=== PATIENT | male | born 1965 | race Caucasian/White ===

== ENCOUNTER 2019-12-15 18:29 | Emergency (ER) | payer OTHER, SELFPAY ==
--- NOTE | ~2019-12-15 | CT_ITS ---
EXAMINATION: CT soft tissue neck w con DATE: 12/15/2019 20:43 INDICATION: Left facial pain and swelling TECHNIQUE: Computed tomography (CT) of the neck was performed with 75 cc of Omnipaque 350 intravenous contrast. The dose-length product (DLP) was 543.65 mGy-cm. Automated exposure control and iterative reconstruction technique were employed. COMPARISON: None FINDINGS: There is subtle left facial soft tissue swelling, predominantly of the mandible, compared t o the right. No phlegmon or fluid collection is identified. The thyroid gland is unremarkable. The clayton bmandibular and parotid glands are symmetric. There is no lymphadenopathy. There are no masses identi fied. The vasculature is patent. The airway is unremarkable. There are no osseous abnormalities. The orbits are unremarkable. The superior mediastinum is unremarkable. There is mucosal thickening of the right maxillary sinus. Moderate cervical spondylosis is noted. IMPRESSION: 1. Subtle left facial soft tissue swelling predominantly of the mandible without abscess or phlegmon. Reviewed, dictated and finalized at location A. IMPRESSION: 1. Subtle left facial soft tissue swelling predominantly of the mandible withou t abscess or phlegmon.
[2019-12-15 18:34] VITALS: BP 148/87; PULSE 103; RESP 18; TEMP 36.6; O2SAT 99
--- NOTE | 2019-12-15 19:05 | ED.GENADULT ---
HPI - General Adult General Chief complaint: Dental/Oral <Ludwig Pena PA-C - Last Filed: 12/15/19 21:20> Stated complaint: Jaw pain/sore throat <COBY Bhatt Last Filed: 12/15/19 21:20> Time Seen by Provider: 12/15/19 18:50 <COBY Bhatt Last Filed: 12/15/19 21:20> Source: patient <COBY Bhatt Last Filed: 12/15/19 21:20> Mode of arrival: ambulatory <COBY Bhatt Last Filed: 12/15/19 21:20> Limitations: no limitations <COBY Bhatt Last Filed: 12/15/19 21:20> History of Present Illness HPI narrative: Patient is a 54-year-old male who presents with 1 week duration of pain and swelling to the left parotid region. Patient also notes the pain is worse with swallowing. Patient denies injury trauma or similar occurrence in the past. Patient denies any pain in the oropharynx. Patient denies URI symptoms. Patient has been taking [id number] medications and azithromycin with minimal improvement. Azithromycin was prescribed 3 days ago by his primary care doctor. <COBY Bhatt Last Filed: 12/15/19 21:20> Related Data Home medications: Home Medications Medication Instructions Recorded Confirmed alprazolam 0.25 mg tablet 0.25 mg PO BID 07/14/19 aspirin 81 mg tablet,delayed 81 mg PO DAILY 07/14/19 release warfarin 6 mg tablet 6 mg PO DAILY 07/14/19 <COBY Bhatt Last Filed: 12/15/19 21:20> Allergies/adverse reactions: Allergies Allergy/AdvReac Type Severity Reaction Status Date / Time Penicillins Allergy Unknown Rash Verified 12/13/19 11:05 rosuvastatin Allergy Unknown Cramping Verified 12/13/19 11:05 of the Muscles <COBY Bhatt Last Filed: 12/15/19 21:20> Review of Systems Review of Systems: All systems reviewed & are unremarkable except as noted in HPI and below <COBY Bhatt Last Filed: 12/15/19 21:20> [facility] Past Medical History Medical History: Medical History History of CVA (cerebrovascular accident) <Ludwig Pena PA-C - Last Filed: 12/15/19 21:20> Social History Social History: Social History Smoking status: Current every day smoker Second hand tobacco smoke exposure: No Alcohol intake: current Gender identity (if verbalized by the patient): Male <Ludwig Pena PA-C - Last Filed: 12/15/19 21:20> Exam Narrative: Exam Narrative: GENERAL: Well-appearing, well-nourished, and in no acute distress. HEAD: Normocephalic, atraumatic. EYES: PERRLA and EOMI. ENT: Nares clear, no rhinorrhea or epistaxis. Mucous membranes moist. Oropharynx without tonsillar hypertrophy exudate or other lesions. Bilateral TMs pearly parham nonbulging. Floor of the mouth is soft. Uvula is midline. Tenderness and swelling to the left parotid region no erythema NECK: Supple. No adenopathy or masses. No stridor CHEST: Clear to auscultation. No respiratory distress. No wheezes rales or rhonchi HEART: Regular rate and rhythm. No murmur heard. EXTREMITIES: Normal range of motion. No edema. SKIN: Warm, dry, no rash. NEURO: No focal deficits. Alert and oriented x3. Cranial nerves II through XII grossly intact PSYCH: Normal mood and affect. <Ludwig Pena PA-C - Last Filed: 12/15/19 21:20> Course Vital Signs Vital signs: Vital Signs Temperature 36.6 C 12/15/19 18:34 Pulse Rate 103 H 12/15/19 18:34 Respiratory Rate 18 12/15/19 18:34 Blood Pressure 148/87 H 12/15/19 18:34 Pulse Oximetry 99 12/15/19 18:34 Temperature 36.6 C 12/15/19 18:34 Pulse Rate 103 H 12/15/19 18:34 Respiratory Rate 18 12/15/19 18:34 Blood Pressure 148/87 H 12/15/19 18:34 Pulse Oximetry 99 12/15/19 18:34 <Ludwig Pena PA-C - Last Filed: 12/15/19 21:20> Vital Signs Tempera
[2019-12-15 19:19] LABS: Basophils Absolute Auto 0.1 K/mm3 (0.0-0.1); Basophils Percent Auto 0.6 % (0.2-1.2); Eosinophils Absolute Auto 0.3 K/mm3 (0-0.3); Eosinophils Percent Auto 2.7 % (0-4.4); Hemoglobin 16.6 g/dL (14.0-18.0); Immature Granulocyte Absolute 0.07 K/mm3 (0.00-0.031); Immature Granulocyte Percent A 0.7 % (0-0.5); Lymphocytes Absolute Auto 3.14 K/mm3 (0.9-3.2); Lymphocytes Percent Auto 30.5 % (18.3-44.2); Mean Corpuscular HGB Conc 34.6 g/dl (32-36); Mean Corpuscular Hemoglobin 31.5 pg (26-34); Mean Corpuscular Volume 91.1 fl (80-100); Mean Platelet Volume 9.6 fl (7.4-10.4); Monocytes Absolute Auto 0.7 K/mm3 (0.1-0.6); Monocytes Percent Auto 7.1 % (2.6-8.5); Neutrophils Percent Auto 58.4 % (45.5-73.1); Platelet Count Result 354 k/mm3 (150-375); Red Blood Count 5.27 M/mm3 (4.6-6.20); Red Cell Distribution Width 14.4 % (11.5-14.5); White Blood Count 10.3 K/mm3 (4.5-10.0)
[2019-12-15 19:27] LABS: Alanine Aminotransferase 59 U/L (4-50); Albumin Level 4.6 g/dL (3.5-5.1); Alkaline Phosphatase 48 U/L (38-126); Aspartate Amino Transferase 53 U/L (17-59); Bilirubin,Total 0.4 mg/dL (0.2-1.3); Blood Urea Nitrogen 16 mg/dL (9-20); Calcium 9.5 mg/dL (8.4-10.2); Carbon Dioxide 25 mmol/L (22-30); Chloride 102 mmol/L (98-107); Estimated CRCL calculation 102 ml/min; Estimated Glomerular Filt Rate > 60; Glucose 100 mg/dL (75-110); Potassium 3.7 mmol/L (3.4-5.0); Sodium 135 mmol/L (137-145)
[2019-12-15 19:28] LABS: INR 1.7; Prothrombin Time 19.4 Seconds (11.1-14.7)
[2019-12-15] MEDS: CLINDAMYCIN 900 MG/NS 50 ML 900 MG/50 ML PIGGYBACK 50 MG IVPB (19:34)
[2019-12-15] MEDS: SODIUM CHLORIDE 0.9% IV 1,000 ML 999 ML IV CONT (19:34)
== END 2019-12-15 21:24 | disposition home or self-care (01) ==
PROVIDERS: Emergency Medicine Emergency Medical Services; Emergency Provider Emergency Medicine; PCP Family Medicine
DX: R68.84 Jaw pain (principal); Z86.73 Personal history of transient ischemic attack (TIA), and cerebral infarction without residual deficits; Z79.01 Long term (current) use of anticoagulants; F17.200 Nicotine dependence, unspecified, uncomplicated; Z79.82 Long term (current) use of aspirin
CPT/HCPCS: 36415; 70491; 80053; 85025; 85610; 96374; 96375; 99284; J0131; J1100; J7030; Q9967

== ENCOUNTER 2022-03-04 11:16 | Outpatient (CLI) | payer OTHER, SELFPAY ==
--- NOTE | ~2022-03-04 | US_ITS ---
EXAMINATION: US scrotum doppler DATE: 03/04/2022 12:19 INDICATION: Testicular pain, unspecified TECHNIQUE: Testicular sonogram utilizing grayscale and Doppler COMPARISON: None. FINDINGS: The right testis measures 4.8 x 2.7 x 3.4 cm. The left testis measures 4.9 x 2.7 x 4.4 cm. There is normal vascular flow to both testes. The right epididymis contains a 4 mm cyst or spermatoce le. The left epididymis contains a 4.2 cm mass. There are multiple additional smaller cysts of the ep ididymis. In the epididymal head. There is no varicocele or hydrocele. IMPRESSION: 1. 4.2 cm mass of the epididymal head, likely cyst or spermatocele. Reviewed, dictated and finalized at location B.
[2022-03-04 12:46] LABS: Hematocrit 47.4 % (42.0-52.0); Hemoglobin 16.3 g/dL (14.0-18.0); Mean Corpuscular HGB Conc 34.4 g/dl (32-36); Mean Corpuscular Hemoglobin 31.3 pg (26-34); Mean Corpuscular Volume 91.2 fl (80-100); Mean Platelet Volume 9.5 fl (7.4-10.4); Platelet Count Result 363 k/mm3 (150-375); Red Cell Distribution Width 13.7 % (11.5-14.5); White Blood Count 8.8 K/mm3 (4.5-10.0)
[2022-03-04 12:57] LABS: Alanine Aminotransferase 74 U/L (6-50); Albumin Level 4.7 g/dL (3.5-5.1); Alkaline Phosphatase 49 U/L (38-126); Anion Gap 12 mmol/L (8-16); Aspartate Amino Transferase 54 U/L (17-59); Bilirubin,Total 0.4 mg/dL (0.2-1.3); Blood Urea Nitrogen 15 mg/dL (9-20); Calcium 9.8 mg/dL (8.4-10.2); Carbon Dioxide 25 mmol/L (22-30); Chloride 103 mmol/L (98-107); Cholesterol 202 mg/dL (0-200); Estimated Glomerular Filt Rate > 60; Glucose 97 mg/dL (65-110); HDL Direct 35 mg/dL; Potassium 3.8 mmol/L (3.4-5.0); Sodium 140 mmol/L (137-145); Triglycerides 334 mg/dL (<150)
[2022-03-04 13:08] LABS: LDL Cholesterol Direct 128 mg/dL
[2022-03-04 13:29] LABS: Prostate Specific Antigen 1.3 ng/mL (< OR = 4.0)
[2022-03-04 13:51] LABS: HIV 1/2 Ab P24 Ag Result Negative (Negative); Hemoglobin A1C 5.8 % (<5.7)
[2022-03-05 07:16] LABS: Rapid Plasma Reagin Non-Reactive (NonReactive)
== END 2022-03-04 11:17 | disposition home or self-care (01) ==
PROVIDERS: PCP Family Medicine; Visit Provider Nurse Practitioner Family
DX: Z12.5 Encounter for screening for malignant neoplasm of prostate (principal); N50.3 Cyst of epididymis; N50.819 Testicular pain, unspecified; Z72.51 High risk heterosexual behavior; E78.2 Mixed hyperlipidemia; I10 Essential (primary) hypertension; R73.01 Impaired fasting glucose
CPT/HCPCS: 36415; 76870; 80053; 80061; 83036; 84153; 85027; 86592; 86703; 87491; 87591; 87661; 93976; G0103; G0432

== ENCOUNTER 2022-03-09 11:25 | Outpatient (CLI) | payer OTHER, SELFPAY ==
[2022-03-09 11:51] LABS: Alanine Aminotransferase 70 U/L (6-50); Albumin Level 4.9 g/dL (3.5-5.1); Alkaline Phosphatase 44 U/L (38-126); Aspartate Amino Transferase 50 U/L (17-59); Bilirubin,Total 0.4 mg/dL (0.2-1.3)
[2022-03-09 12:34] LABS: Hepatitis B Surface Antigen Negative (Negative)
[2022-03-09 12:40] LABS: HAV RESULT Negative (Negative); Hepatitis B Core IgM Result Negative (Negative)
[2022-03-09 12:52] LABS: Hepatitis C Virus Antibody Negative (Negative)
== END 2022-03-09 11:26 | disposition home or self-care (01) ==
LOC: ANHLAB 11:26
PROVIDERS: PCP Family Medicine; Visit Provider Nurse Practitioner Family
DX: R94.5 Abnormal results of liver function studies (principal)
CPT/HCPCS: 36415; 80074; 80076

== ENCOUNTER 2023-03-27 11:20 | Outpatient (CLI) | payer BC, SELFPAY ==
[2023-03-27 13:45] LABS: Chlamydia trachomatis NOT DETECTED (NOT DETECTE); Neisseria gonorrhoeae PCR NOT DETECTED (NOT DETECTE)
== END 2023-03-27 11:21 | disposition home or self-care (01) ==
PROVIDERS: PCP Family Medicine; Visit Provider Nurse Practitioner Family
DX: Z72.51 High risk heterosexual behavior (principal)
CPT/HCPCS: 87491; 87591

== ENCOUNTER → 2023-07-31 09:50 | Outpatient (REF) | payer BC, SELFPAY | LOC: ANHLAB 09:50 | PROVIDERS: PCP Family Medicine; Visit Provider Plastic Surgery | DX: L91.8 Other hypertrophic disorders of the skin (principal) | CPT/HCPCS: 88305 ==

== ENCOUNTER → 2023-08-15 13:24 | Outpatient (REF) | payer BC, SELFPAY | LOC: ANHLAB 13:24 | PROVIDERS: PCP Family Medicine; Visit Provider Plastic Surgery | DX: L72.0 Epidermal cyst (principal) | CPT/HCPCS: 88305 ==